=== PATIENT | male | born 1985 | race Caucasian/White ===

== ENCOUNTER 2017-04-23 10:35 | Inpatient (IN) | payer BC ==
[~2017-04-23] VITALS: Ht 188 cm; Wt 186.0 kg
[2017-04-23] MEDS ORDERED: SINGULAIR10 MG PO (18:31)
[2017-04-23] MEDS ORDERED: ZYRTEC10 M3 PO (18:31)
[2017-04-23] MEDS ORDERED: CONCERTA54 MG PO (18:31)
[2017-04-23] MEDS ORDERED: LISINOPRIL10 MG PO (18:31)
[2017-04-23] MEDS ORDERED: DESYREL 150 MG150 MG PO (18:31)
[2017-04-23] MEDS ORDERED: FLUOXETINE HCL40 MG PO (18:31)
[2017-04-23] MEDS ORDERED: FLUOXETINE HCL20 MG PO (18:31)
[2017-04-23 18:40] LABS: HEMATOCRIT 41.3 % (38.0-50.0); MCH 29.3 PG (29.0-34.0); MCHC 33.7 G/DL (30.0-36.0); MCV 86.9 FL (86-99); MEAN PLAT.VOLUME 10.2 uM^3 (9.0-12.4); PLATELET COUNT 274 K/uL (156-360); RBC DIS.WIDTH-CV 12.6 % (11.8-14.6); RBC DIS.WIDTH-SD 40.5 % (39-53); RED BLOOD COUNT 4.75 M/uL (4.00-5.50); WHITE BLOOD COUNT 8.7 K/uL (4.1-10.2)
[2017-04-23 18:51] LABS: CHLORIDE 106 mEq/L (99-109); POTASSIUM 4.1 mEq/L (3.7-5.4); SODIUM 138 mEq/L (136-147)
[2017-04-23 18:53] LABS: GLUCOSE 98 mg/dL (70-99)
[2017-04-23 18:54] LABS: ANION GAP 9 MEQ/L (2-14)
[2017-04-23 18:56] LABS: GFR ESTIMATE (CALCULATED) > 59 mL/min/
[2017-04-23 18:57] LABS: UREA NITROGEN (BUN) 7 mg/dL (9-23)
[2017-04-23 20:15] VITALS: BP 164/86
[2017-04-23 22:55] VITALS: BP 146/88
[2017-04-24 03:18] VITALS: BP 138/85
[2017-04-24 08:08] VITALS: BP 153/79
[2017-04-24 11:35] VITALS: BP 127/58
[2017-04-24 16:06] VITALS: BP 144/89
[2017-04-24 20:53] VITALS: BP 143/86
[2017-04-24 23:17] VITALS: BP 138/81
[2017-04-25 02:54] VITALS: BP 140/85
[2017-04-25 06:00] LABS: HEMATOCRIT 39.4 % (38.0-50.0); MCV 87.6 FL (86-99)
[2017-04-25 06:25] LABS: ANION GAP 7 MEQ/L (2-14); CHLORIDE 100 MEQ/L (99-109); GFR ESTIMATE (CALCULATED) > 59 mL/min/; GLUCOSE 110 mg/dL (70-99); POTASSIUM 4.2 MEQ/L (3.7-5.4); SAMPLE HEMOLYSIS CHECK 0; SAMPLE ICTERIC CHECK 0; SAMPLE LIPEMIA CHECK 0; SODIUM 134 MEQ/L (136-147); UREA NITROGEN (BUN) 5 mg/dL (9-23)
[2017-04-25 08:33] VITALS: BP 139/76
[2017-04-25 12:18] VITALS: BP 143/89
[2017-04-25 16:28] VITALS: BP 116/70
[2017-04-25 23:41] VITALS: BP 142/72
[2017-04-26 06:41] LABS: HEMATOCRIT 36.6 % (38.0-50.0); MCV 86.3 FL (86-99)
[2017-04-26 07:44] VITALS: BP 151/82
[2017-04-26 16:12] VITALS: BP 149/77
[2017-04-27 00:28] VITALS: BP 131/68
[2017-04-27 08:09] VITALS: BP 144/79
[2017-04-27 15:58] VITALS: BP 142/80
[2017-04-27 23:55] VITALS: BP 108/55
[2017-04-28 07:54] VITALS: BP 112/65
[2017-04-28 16:51] VITALS: BP 127/71
[2017-04-28 22:09] VITALS: BP 129/64
[2017-04-29 08:06] VITALS: BP 111/67
[2017-04-29 16:39] VITALS: BP 130/78
[2017-04-29 23:29] VITALS: BP 135/74
[2017-04-30 06:49] LABS: EOSINOPHIL (%) 2.8 % (0-5); EOSINOPHIL COUNT 0.2 K/uL (0-0.3); IMMATURE GRANULOCYTE (%) 0.6 % (0.0-0.7); INSTRUMENT ABS NEUTROPHIL CT 4.4 K/uL; LYMPHOCYTE COUNT 1.9 K/uL (1.0-2.8); MCH 30.3 PG (29.0-34.0); MCHC 34.9 G/DL (30.0-36.0); MCV 86.8 FL (86-99); MEAN PLAT.VOLUME 9.9 uM^3 (9.0-12.4); MONOCYTE (%) 7.8 % (3-12); MONOCYTE COUNT 0.6 K/uL (0-0.8); NEUTROPHIL (%) 61.6 % (45-76); NEUTROPHIL COUNT 4.4 K/uL (1.8-6.4); PLATELET COUNT 275 K/uL (156-360); RBC DIS.WIDTH-CV 12.5 % (11.8-14.6); RBC DIS.WIDTH-SD 39.6 % (39-53); RED BLOOD COUNT 4.03 M/uL (4.00-5.50); WHITE BLOOD COUNT 7.1 K/uL (4.1-10.2)
[2017-04-30 08:18] VITALS: BP 131/79
[2017-04-30] MEDS ORDERED: BENADRYL25 MG PO (10:08)
[2017-04-30] MEDS ORDERED: SENNA PLUS TAB1 EACH PO (10:12)
[2017-04-30] MEDS ORDERED: THERAGRAN1 TABLET PO (10:12)
[2017-04-30] MEDS ORDERED: TYLENOL REGULA325 MG PO (10:12)
[2017-04-30] MEDS ORDERED: OXYCONTIN10 MG PO (10:13)
[2017-04-30] MEDS ORDERED: METHOCARBAMOL750 MG PO (10:13)
[2017-04-30] MEDS ORDERED: ENDOCET 5-3251 EACH PO (10:13)
[2017-04-30] MEDS ORDERED: LOVENOX40 MG/0.4 SC (10:13)
[2017-04-30] MEDS ORDERED: CEPHALEXIN500 MG PO (15:50)
[2017-04-30 16:25] VITALS: BP 125/80
== END 2017-04-30 20:39 | DRG 493 ==
LOC: EME 10:35 → ENRESERV 18:30 → 3EAST 18:31 → EDOF 18:31 → ENRESERV 19:11 → 3EAST 19:53
PROVIDERS: Orthopaedic Surgery; Orthopaedic Surgery Sports Medicine
DX: S82.851A Displaced trimalleolar fracture of right lower leg, initial encounter for closed fracture (principal); S50.02XA Contusion of left elbow, initial encounter; W10.9XXA Fall (on) (from) unspecified stairs and steps, initial encounter; L89.519 Pressure ulcer of right ankle, unspecified stage; I10 Essential (primary) hypertension; F84.5 Asperger's syndrome; K59.00 Constipation, unspecified; Y92.008 Other place in unspecified non-institutional (private) residence as the place of occurrence of the external cause; E66.01 Morbid (severe) obesity due to excess calories; Z68.43 Body mass index [BMI] 50.0-59.9, adult
CPT/HCPCS: 73590; 73600; 73610; 73700; 76000; 80048; 82306; 85014; 85018; 85025; 85027; 97530 GO; 97530 GP; 99281; 99284; C1713; J0131; J0330; J0690; J1100; J1170; J1650; J2250; J2270; J2405; J2710; J3010